=== PATIENT | female | born 1970 | race Caucasian/White ===

== ENCOUNTER 2020-10-11 14:31 | Emergency (ER) | payer MEDICARE, MEDICAID ==
[~2020-10-11] VITALS: Ht 157.5 cm; Wt 99.5 kg
[2020-10-11 14:41] VITALS: TEMP 97.2
[2020-10-11] MEDS ORDERED: CLEOCIN HCL300 MG PO (15:11)
[2020-10-11 15:35] VITALS: BP 147/77; PULSE 82
[2020-10-12] MEDS ORDERED: ATARAX 25MG25 MG/TAB PO (23:08)
== END 2020-10-11 15:38 | disposition home or self-care (01) ==
LOC: COL.ER 14:31
DX: H92.01 Otalgia, right ear (principal); Z88.8 Allergy status to other drugs, medicaments and biological substances; Z88.6 Allergy status to analgesic agent; Z88.1 Allergy status to other antibiotic agents; Z88.2 Allergy status to sulfonamides

== ENCOUNTER 2020-10-12 22:12 | Emergency (ER) | payer MEDICARE, MEDICAID ==
[~2020-10-12] VITALS: Ht 157.5 cm; Wt 98.2 kg
[~2020-10-12 22:12] MED LIST: CLEOCIN HCL300 MG PO
[2020-10-12 22:20] VITALS: TEMP 96.9
[2020-10-12] MEDS ORDERED: ATARAX 25MG25 MG/TAB PO (23:08)
[2020-10-12 23:33] VITALS: BP 155/97; PULSE 98
== END 2020-10-12 23:35 | disposition home or self-care (01) ==
LOC: COL.ER 22:12
DX: L98.1 Factitial dermatitis (principal); Z88.1 Allergy status to other antibiotic agents; Z88.2 Allergy status to sulfonamides; Z88.6 Allergy status to analgesic agent; Z88.8 Allergy status to other drugs, medicaments and biological substances; Z79.2 Long term (current) use of antibiotics